=== PATIENT | male | born 1955 | race Caucasian/White ===

== ENCOUNTER 2020-04-06 08:02 | Outpatient (REF) | payer OTHER, SELFPAY ==
[2020-04-06 08:51] LABS: MANUAL DIFF FLAG NO
[2020-04-06 08:55] LABS: Basophils Percent Auto 0.4 % (0-2); Eosinophils Absolute Auto 0.3 X10*3/uL (0.0-0.4); Eosinophils Percent Auto 3.5 % (0-4); Hematocrit 43.5 % (42-52); Hemoglobin 14.7 g/dl (14.0-18.0); Imm Gran Abs Auto 0.03 X10*3/uL (0.00-0.03); Imm Gran Pct Auto 0.4 % (0.0-0.4); Lymphocytes Absolute Auto 2.1 X10*3/uL (1.2-4.9); Lymphocytes Percent Auto 25.9 % (20-40); Mean Corpuscular HGB Conc 33.8 g/dl (31.0-36.0); Mean Corpuscular Hemoglobin 30.8 pg (27.0-33.0); Mean Platelet Volume 10.4 fL (9.4-12.4); Monocytes Absolute Auto 0.8 X10*3/uL (0.1-1.2); Monocytes Percent Auto 9.7 % (2-11); Neutrophils Absolute Auto 4.8 X10*3/uL (2.0-8.3); Neutrophils Percent Auto 60.1 % (45-73); Platelet Count 247 X10*3/uL (160-400); Red Blood Count 4.78 X10*6/uL (4.60-5.80); Red Cell Distribution Width 12.3 % (11.0-16.0)
[2020-04-06 09:26] LABS: Creatinine Urine 116.05 mg/dL; Microalbum/Creatinine Ratio Ur 8.6 ug/mg cr
[2020-04-06 09:29] LABS: Alanine Aminotransferase 25 U/L (0-40); Albumin Level 4.1 g/dL (3.5-5.0); Alkaline Phosphatase 42 U/L (39-117); Anion Gap 14 (12-20); Aspartate Amino Transferase 17 U/L (5-37); Bilirubin Total 0.8 mg/dL (0.0-1.0); Blood Urea Nitrogen 20 mg/dL (9-16); Calcium 9.2 mg/dL (8.4-10.2); Carbon Dioxide 25 mmol/L (22-29); Chloride 105 mmol/L (96-108); Cholesterol 137 mg/dL; Estimated Glomerular Filt Rate > 60; Glucose Fasting 112 mg/dL (60-99); HDL Cholesterol 43 mg/dL; LDL Cholesterol Calculated 82 mg/dl; Potassium 4.9 mmol/l (3.3-5.1); Sodium 139 mmol/L (135-145); Total Protein 6.7 g/dL (6.5-8.0); Triglycerides 63 mg/dL
[2020-04-06 10:08] LABS: Estimated Average Glucose 189 mg/dL; Hemoglobin A1c % 8.2 %
== END 2020-04-06 08:03 | disposition home or self-care (01) ==
LOC: HO.LAB 08:02
PROVIDERS: Absent Provider Internal Medicine; PCP Internal Medicine; Visit Provider Internal Medicine
DX: Z00.00 Encounter for general adult medical examination without abnormal findings (principal); E11.9 Type 2 diabetes mellitus without complications; E03.9 Hypothyroidism, unspecified; Z20.828 Contact with and (suspected) exposure to other viral communicable diseases
CPT/HCPCS: 36415; 80053; 80061; 82043; 83036; 84443; 85025; C9803; U0003

== ENCOUNTER 2020-11-04 09:32 | Outpatient (REF) | payer OTHER, SELFPAY ==
[2020-11-04 10:36] LABS: Estimated Average Glucose 169 mg/dL; Hemoglobin A1c % 7.5 %
[2020-11-04 10:39] LABS: Cholesterol 136 mg/dL; HDL Cholesterol 41 mg/dL; LDL Cholesterol Calculated 82 mg/dl; Triglycerides 65 mg/dL
[2020-11-04 11:14] LABS: Creatinine Urine 44.63 mg/dL; Microalbumin Urine < 5.0 mg/L
== END 2020-11-04 09:33 | disposition home or self-care (01) ==
LOC: HO.LAB 09:32
PROVIDERS: PCP Internal Medicine; Visit Provider Internal Medicine
DX: E11.9 Type 2 diabetes mellitus without complications (principal)
CPT/HCPCS: 36415; 80061; 82043; 83036

== ENCOUNTER 2025-04-19 11:30 | Day surgery (SDC) | payer MEDICARE, SELFPAY ==
--- OUTSIDE RECORDS SUMMARY | 2025-04-09 17:02 | XMS_ITS | Patient Health Record ---
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 Name Role Phone Gricel Frank Primary Care Provider Abdullahi Hernandez [phone] Allergies No Known Allergies Reason For Referral No Information Medications Medication SIG (Take, Route, Frequency, Duration) Notes Start Date End Date Status metFORMIN HCl ER 500 MG Tablet Extended Release 24 Hour TAKE 2 TABLETS TWICE A DAY Orally Once a day Active Atorvastatin Calcium 20 MG Tablet TAKE 1 TABLET BY MOUTH EVERY DAY Oral; Duration: 90 Active Aspirin 81 MG Tablet Chewable 1 tablet Orally Once a day A ctive Lisinopril 20 MG Tablet 1 tablet Orally Once a day Active Calcium Active Lantus SoloStar 100 UNIT/ML Solution Pen-injector INJECT 35 UNITS SUBCUTANEOUSY DAILY AT BEDTIME Subcutaneous once a day Active Immunizations Vaccine Route Administration Date Status Comme nts Influenza Unknown 01/27/2019 Administered Influenza Unknown 01/29/2024 Administered Social History Tobacco Use: Social History Observation Description Date Details (start date - stop date) Former Smoker NA - NA Social History Tobacco Use: Social Info Question Answer Notes Tobacco Use/Smoking Patient is a former smoker How long has it been since you last smoked? 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 alcohol Nonsmoker since 2012; no sig . alcohol Nonsmoker since 2012; no sig . 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 (Z79.82) Active confirmed Problem Preprocedural examination (833066373028149) Preprocedural examination (Z01.818) Active confirmed Problem Family History of Cancer of Colon (Situation) (632217919) Family history of colon cancer (Z80.0) Active confirmed Problem Diarrhea (04596772) Diarrhea, unspecified type (R19.7) Active confirmed Vital Signs Temperature 98.9 degrees Fahrenheit 01/28/2025 Blood pressure diastolic 01 mm Hg 01/28/2025 Height 67 in 01/28/2025 Blood pressure systolic 001 mm Hg 01/28/2025 Weight 163 lbs 01/28/2025 BMI 25.53 kg/m2 01/28/2025 Procedures Procedure Date Ordered Date Performed Result Body Sit e COLONOSCOPY 01/28/2025 N/A Encounters Encounter Location Date Provider Diagnosis [facility] [address] [place] [phone] 01/28/2025 Abdullahi Xie Encounter for screen ing for malignant neoplasm of colon Z12.11 ; intermediate (current) use of aspirin Z79.82 ; Family history of colon cancer Z80.0 and Preprocedural examination Z01.818 [facility] [address] [place] [phone] 05/19/2024 Abdullahi Xie [facility] [address] [place] [phone] 09/28/2024 Abdullahi Xie Assessments Encounter Date Diagnosis (ICD Code) Assessment Notes Treatment Notes Treatment Clinical Notes Section Notes 01/28/2025 Encounter for screening for malignant neoplasm of colon (ICD-10 - Z12.11) Overall, Don appears quite well. He is not having any new or worrisome GI complaints. We did review that his somewhat increased bowel movement frequency is his baseline and does not sound worrisome for anything such as inflammatory bowel disease or celiac disease. We we did review that metformin can sometimes increase the bowel movement frequency and he can always talk to his PCP about that. However he reports that the metformin is working well for the diabetes and he is inclined to simply continue the way things are. I did recommend a follow-up colonoscopy for further screening given his family history and his last colonoscopy being over 5 years ago. We did review the rationale for this in regard to colon cancer prevention. He was given the below instructions regarding adjustment of his medications for the procedure. Full consent has been obtained for the colonoscopy, including risk of bleeding and perforation. The procedure will be done with monitored anesthesia care. Len was comfortable with this plan. Thank you again for allowing me to participate in Len's care. I shall continue to keep you advised of his progress. 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 He is not having any new or worrisome GI complaints. We did review that his somewhat increased bowel movement frequency is his baseline and does not sound worrisome for anything such as inflammatory bowel disease or celiac disease. We we did review that metformin can sometimes increase the bowel movement frequency and he can always talk to his PCP about that. However he reports that the metformin is working well for the diabetes and he is inclined to simply continue the way things are. I did recommend a follow-up colonoscopy for further screening given his family history and his last colonoscopy being over 5 years ago. We did review the rationale for this in regard to colon cancer prevention. He was given the below instructions regarding adjustment of his medications for the procedure. Full consent has been obtained for the colonoscopy, including risk of bleeding and perforation. The procedure will be done with monitored anesthesia care. Len was comfortable with this plan. Thank you again for allowing me to participate in Len's care. I shall continue to keep you advised of his progress. 01/28/2025 Family history of colon cancer (ICD-10 - Z80.0) Overall, Len appears quite well. He is not having any new or worrisome GI complaints. We did review that his somewhat increased bowel movement frequency is his baseline and does not sound worrisome for anything such as inflammatory bowel disease or celiac disease. We we did review that metformin can sometimes increase the bowel movement frequency and he can always talk to his PCP about that. However he reports that the metformin is working well for the diabetes and he is inclined to simply continue the way things are. I did recommend a follow-up colonoscopy for further screening given his family history and his last colonoscopy being over 5 years ago. We did review the rationale for this in regard to colon cancer prevention. He was given the below instructions regarding adjustment of his medications for the procedure. Full consent has been obtained for the colonoscopy, including risk of bleeding and perforation. The procedure will be done with monitored anesthesia care. Len was comfortable with this plan. Thank you again for allowing me to participate in Len's care. I shall continue to keep you advised of his progress. 01/28/2025 Preprocedural examination (ICD-10 - Z01.818) Overall, Len appears quite well. He is not having any new or worrisome GI complaints. We did review that his somewhat increased bowel movement frequency is his baseline and does not sound worrisome for anything such as inflammatory bowel disease or celiac disease. We we did review that metformin can sometimes increase the bowel movement frequency and he can always talk to his PCP about that. However he reports that the metformin is working well for the diabetes and he is inclined to simply continue the way things are. I did recommend a follow-up colonoscopy for further screening given his family history and his last colonoscopy being over 5 years ago. We did review the rationale for this in regard to colon cancer prevention. He was given the below instructions regarding adjustment of his medications for the procedure. Full consent has been obtained for the colonoscopy, including risk of bleeding and perforation. The procedure will be done with monitored anesthesia care. Len was comfortable with this plan. Thank you again for allowing me to participate in Len's care. I shall continue to keep you advised of his progress. Plan Of Treatment Pending Test Test Name Order Date COLONOSCOPY 01/28/2025 LIVER PROFILE 07/05/2021 CRP 07/05/2021 CBC w DIFF 07/05/2021 SED RATE (ESR) 07/05/2021 CELIAC PANEL #10 07/05/2021 CULTURE, STOOL 07/05/2021 STOOL WBC 07/05/2021 C DIFFICILE RFLX PCR 07/05/2021 TSH reflex Free T4 07/05/2021 Giardia Ag Stool EIA 07/05/2021 Ova and Parasite 07/05/2021 Future Test Test Name Order Date COLONOSCOPY 12/26/2012 COLONOSCOPY 02/18/2019 Next Appt Details Provider Name:Abdullahi Krishnan Xie , 04/19/2025 01:30:00 PM, [address] [place] [address] , [place], [place], [phone], Insurance Providers Payer Name Payer Address Payer Phone Subscriber Number Group Number Insured Name Patient Relationship to Insured Coverage Start Date Coverage End Date [employer] OF [place] [address] [place] [address] [id number] KESHA SONG Self - patient is the insured 3 Medical (General) History Medical History History ICD Code IDDM Diverticulitis in 04/2010-phillip ated with antibiotics-had a negative colonoscopy in 2010 as well Hyperlipidemia Denies [place],CVA,Lung disease,renal disease Neg colonoscopy in 07/2013 and 2018 HTN Surgical History Surgery Date(Month/Year) Left rotator cuff 2009
--- NOTE | 2025-04-15 12:04 | HO.ANESPROP2 ---
Documented by User: Sunshine Zaragoza NP 04/15/25 12:05 HPI - Anesthesia Eval Consult details Narrative: 69yo M for Colonoscopy [facility] Active Problems Active Problems: All Active Problems Hyperlipidemia (Acute) Hypertension (Acute) Diabetes mellitus with coincident hypertension (Acute) Pre-op exam (Acute) Diabetes mellitus (Acute) Past Medical History Medical History Hyperlipidemia Hypertension Diabetes mellitus with coincident hypertension Diabetes mellitus Family History Family History Father No problems noted. Mother No problems noted. 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 Cognitive needs: No Hearing needs: No Vision needs: No Meds Allergies Allergy/AdvReac Type Severity Reaction Status Date / Time No Known Allergies Allergy Verified 04/19/25 11:37 Home Medications ?Medication ?Instructions ?Recorded ?Confirmed ?Last Taken ?Type atorvastatin 20 mg tablet 20 mg PO BEDTIME 04/19/25 04/19/25 Unknown History Assessment and Plan Assessment Anesthesia Assessment: Chart Reviewed Documented by User: Cameron Negron MD 04/19/25 12:23 PMFSH Past Medical History Medical History Hyperlipidemia Hypertension Diabetes mellitus with coincident hypertension Diabetes mellitus Cognitive capacity: normal Functional capacity: independent ambulation Family History Family History Father No problems noted. Mother No problems noted. Family history of problems with anesthesia: No Surgical History Surgical History H/O colonoscopy History of repair of left rotator cuff History of Problems with Anesthesia: No Social History Social History Housing: House Alcohol intake: current Alcohol intake frequency: holidays/special occasions only Patient Tobacco Use Status: Former Tobacco user e-Cigarette/Vaping Use: Never Used Second Hand Smoke Exposure: No Use of substances other than those prescribed or required for medical reasons: No Are you DNR?: No Advance Directives: No Advance Directives Information Provided: Yes service: No Current occupational status: employed 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 Cognitive needs: No Hearing needs: No Vision needs: No Meds Allergies Allergy/AdvReac Type Severity Reaction Status Date / Time No Known Allergies Allergy Verified 04/19/25 11:37 Home Medications ?Medication ?Instructions ?Recorded ?Confirmed ?Last Taken ?Type atorvastatin 20 mg tablet 20 mg PO BEDTIME 04/19/25 04/19/25 Unknown History Exam Exam Date and Time: 04/19/2025 Airway Mallampati Class: II TM Dist: >3cm Neck ROM: Full Heart: normal Lungs: normal Other: normal Assessment and Plan Assessment Anesthesia Assessment: Anesthesia Plan Discussed Final Anesthetic Review Family History of Problems with Anesthesia: No History of Problems with Anesthesia: No NPO: Yes ASA Class: II Final Preanesthetic Review: No Changes in Pt Med Stat, Meds/Allgs Chart Reviewed, Consent Obtained/Reviewed and Anes Risks/Benef Reviewed Patient Risk: Low Procedure Risk: Low Anesthetic Plan Anesthetic Plan: MAC: Disposition: Standard PACU
[2025-04-15 16:12] VITALS: BMI 25.5
[2025-04-19 11:37] VITALS: BMI 24.4
[2025-04-19 12:00] VITALS: BP 124/95; PULSE 94; RESP 15; TEMP 36.4; O2SAT 98
[2025-04-19] MEDS: Lactated Ringers 1,000 ML 100 ML IVCONT (12:02)
[2025-04-19 12:06] LABS: Glucose, Whole Blood 98 mg/dL (60-115)
[2025-04-19 13:24] VITALS: BP 98/57; PULSE 70; RESP 16; TEMP 36.1; O2SAT 97
--- NOTE | 2025-04-19 13:32 | PM.OP ---
Brief Operative Note Date of Service: 04/19/25 Pre-op diagnosis: Screening Post-op diagnosis: other (Polyp) Procedure: Colonoscopy to the cecum and TI with cold snare polypectomy x 1 Surgeon: Abdullahi Xie MD Anesthesia: MAC Was an Baccarat Manager used for this Procedure?: No Estimated blood loss (mL): 2.0 Pathology: other (A. Cecal polyp) Condition: stable Disposition: PACU
[2025-04-19 13:35] VITALS: BP 107/71; PULSE 79; RESP 16; TEMP 36.1; O2SAT 99
--- NOTE | 2025-04-19 13:58 | OP_ITS ---
DATE OF SERVICE: 04/19/2025 SURGEON: Abdullahi Xie MD INDICATIONS: The patient presents for evaluation of colorectal cancer screening. Full consent has been obtained from him for this, including risks of bleeding and perforation. PREOPERATIVE DIAGNOSIS: POSTOPERATIVE DIAGNOSIS: PROCEDURE PERFORMED: Colonoscopy to the cecum and terminal ileum with cold snare polypectomy x1. ESTIMATED BLOOD LOSS: COMPLICATIONS: ANESTHESIA: Medication used; monitored anesthesia care. ASSISTANTS: SPECIMENS: PREOPERATIVE DIAGNOSES: Colorectal cancer screening and family history of colon. POSTOPERATIVE DIAGNOSES: Colorectal cancer screening and family history of colon, small colon polyp, diverticulosis, and internal hemorrhoids. DESCRIPTION OF PROCEDURE: The patient was placed in the left lateral decubitus position. The digital rectal exam revealed no abnormalities. The Olympus video pediatric colonoscope was entered into the rectum and advanced easily to the cecum. Once in the cecum, I did identify cecal pouch with appendiceal orifice and normal-appearing ileocecal valve. The terminal ileum was cannulated and appeared normal. The scope was withdrawn back in the colon. The entire cecum and ileocecal valve were well visualized. In the cecum, there was an approximately 5 mm grossly adenomatous polyp, which was removed by cold snare polypectomy and recovered by suction. The polypectomy site appeared clean, without any sign of residual polyp nor significant bleeding. The scope was then slowly withdrawn assessing all mucosal surfaces carefully. Preparation was excellent. I did not visualize any sign of other polyps, colitis, nor angiodysplasia. There was a moderate amount of sigmoid diverticulosis. In the rectum, scope was retroflexed visualizing internal hemorrhoids, but no other pathology. The rectal mucosa appeared normal. Scope was straightened and withdrawn from the patient. He tolerated the procedure well and was returned to the recovery area in stable condition. IMPRESSION: 1. Colon polyp. 2. Diverticulosis. 3. Internal hemorrhoids. PLAN: The results of the pathology will be checked. Even if the polyp is not a tubular adenoma, I would recommend a followup colonoscopy in 5 years for further screening given his family history of colorectal cancer and polyps. He was advised not to use any aspirin and NSAIDs for 1 week. MD KAYLA Brown/MODL / [id number]
== END 2025-04-19 14:02 | disposition home or self-care (01) ==
PROVIDERS: PCP Student in an Organized Health Care Education/Training Program; Visit Provider Internal Medicine
PROC: 0DJD8ZZ Inspection of Lower Intestinal Tract, Via Natural or Artificial Opening Endoscopic (ICD-10-PCS; CPT 45378; principal; 2025-04-19 12:30)
DX: Z12.11 Encounter for screening for malignant neoplasm of colon (principal); Z80.0 Family history of malignant neoplasm of digestive organs; E11.9 Type 2 diabetes mellitus without complications; K57.30 Diverticulosis of large intestine without perforation or abscess without bleeding; K64.8 Other hemorrhoids; D12.0 Benign neoplasm of cecum
CPT/HCPCS: 45385; 82947; 88305; J2003; J2704; J3010